=== PATIENT | female | born 1945 ===

== ENCOUNTER 2023-08-18 16:00 | Outpatient (CLI) | payer MEDICARE, BC | END 2023-08-18 16:01 | disposition home or self-care (01) | LOC: SLEEPLAB 16:00 | PROVIDERS: ATTEND Otolaryngology Otolaryngic Allergy | DX: G47.33 Obstructive sleep apnea (adult) (pediatric) (principal); R06.83 Snoring; G47.10 Hypersomnia, unspecified; J45.909 Unspecified asthma, uncomplicated; F32.A Depression, unspecified; G47.00 Insomnia, unspecified; F41.9 Anxiety disorder, unspecified; G47.61 Periodic limb movement disorder; G47.52 REM sleep behavior disorder; I49.3 Ventricular premature depolarization | CPT/HCPCS: 95810 ==